=== PATIENT | male | born 1995 | race African-American/Black ===

== ENCOUNTER 2018-03-17 09:42 | Emergency (ER) | payer OTHER ==
[~2018-03-17] VITALS: Ht 180.3 cm; Wt 78.9 kg
[2018-03-17 10:03] VITALS: BP 148/66
== END 2018-03-17 12:00 | disposition home or self-care (01) ==
LOC: ER 09:42
DX: Z20.2 Contact with and (suspected) exposure to infections with a predominantly sexual mode of transmission (principal)